=== PATIENT | female | born 1955 | race African-American/Black ===

== ENCOUNTER → 2021-10-30 | Day surgery (SDC) | payer BC ==
[~2021-10-30] VITALS: Ht 170.2 cm; Wt 81.8 kg
[~2021-10-30] MED LIST: DICL50TA4 PO; FLUT100D2 IH; GABA300C18 PO; IV RINGERS,LACTATED 1000ML 1,000 ML IV SCH; LIDOCAINE 2% PF 5 ML VIAL. ONE; PROPOFOL 10 MG/ML (20ML) VIAL. IV ONE; TRIA1CAP3 PO
[2021-10-30 06:46] VITALS: BP 167/65
[2021-10-30 08:16] VITALS: BP 130/63
--- NOTE | 2021-10-30 13:22 | CONS ---
DATE OF CONSULTATION: 10/30/2021 UPDATED HISTORY AND PHYSICAL REASON FOR CONSULTATION: History of colonic polyps, colorectal screening. HISTORY OF PRESENT ILLNESS: A 66-year-old female whose past medical history is significant for osteoarthrosis, hypertension, is seen for interval colon exam; exam in 2011 was significant for diverticulosis and hemorrhoids; one in 2006 did reveal hyperplastic polyp. No melena and/or hematochezia is noted. Weight and appetite are stable. She is otherwise without additional complaints. PAST MEDICAL HISTORY: History of colonic polyps, hypertension, osteoarthrosis, diverticulosis. ALLERGIES: HYDROCODONE. MEDICATIONS: Include diclofenac, Flovent, gabapentin, triamterene hydrochlorothiazide. FAMILY AND SOCIAL HISTORY: Significant for Crohn's in the child, diabetes in brother and father, hypertension in mother and [place] in her father. SOCIAL HISTORY: Social drinker, former smoker. PAST SURGICAL HISTORY: Significant for appendectomy and eye surgery. REVIEW OF SYSTEMS: Per records. PHYSICAL EXAMINATION: GENERAL: Reveals a well-nourished, well-developed female who is alert, cooperative, in no acute distress. VITAL SIGNS: Temperature is 98, pulse 87, respiratory rate 14. LUNGS: Clear. CARDIOVASCULAR: Reveals an S1, S2, without S3, S4 or appreciable murmur. ABDOMEN: Reveals a soft abdomen, normal bowel sounds, without appreciable hepatosplenomegaly. EXTREMITIES: Reveals no cyanosis, clubbing or edema. IMPRESSION: Colorectal screening for history of polyps was recommended. Risks and benefits were discussed. The patient ____ and is willing to proceed at this time. I would like to thank Dr. Wiley for allowing us to consult and participate in this patient's care. IVAN/SAUD DR: Jero TID: [id number] CC: AIDAN WILEY MD
== END | disposition home or self-care (01) ==
LOC: ENDOS 06:26
PROVIDERS: ATTEND Internal Medicine Gastroenterology
DX: Z12.11 Encounter for screening for malignant neoplasm of colon (principal); K57.30 Diverticulosis of large intestine without perforation or abscess without bleeding; K64.0 First degree hemorrhoids; K63.89 Other specified diseases of intestine; I10 Essential (primary) hypertension; M19.90 Unspecified osteoarthritis, unspecified site; Z86.010 Personal history of colon polyps; Z79.899 Other long term (current) drug therapy; Z98.890 Other specified postprocedural states; Z82.49 Family history of ischemic heart disease and other diseases of the circulatory system; Z83.3 Family history of diabetes mellitus; Z91.040 Latex allergy status; Z88.8 Allergy status to other drugs, medicaments and biological substances
CPT/HCPCS: G0105; J2704; 45378